=== PATIENT | female | born 1970 | race African-American/Black ===

== ENCOUNTER 2018-11-30 08:46 | Day surgery (SDC) | payer OTHER ==
[2018-11-30 09:29] LABS: HEMATOCRIT 34.2 % (36.0-47.0); HEMOGLOBIN 11.2 g/dL (12.0-15.5); MEAN CORPUSCULAR HEMOGLOBIN 27.4 pg (27.0-33.4); MEAN CORPUSCULAR HGB CONC 32.8 g/dL (32.0-36.0); MEAN CORPUSCULAR VOLUME 84 fl (80-97); PLATELET COUNT 324 10^3/uL (150-450); RED BLOOD COUNT 4.09 10^6/uL (3.72-5.28); WHITE BLOOD COUNT 9.9 10^3/uL (4.0-10.5)
[2018-11-30 09:48] LABS: APPEARANCE,URINE CLEAR; BILIRUBIN,URINE NEGATIVE (NEGATIVE); COLOR,URINE YELLOW; GLUCOSE, URINE NEGATIVE (NEGATIVE); KETONES,URINE NEGATIVE (NEGATIVE); LEUKOCYTE ESTERASE,URINE NEGATIVE (NEGATIVE); NITRITE,URINE NEGATIVE (NEGATIVE); PROTEIN,URINE 30 mg/dL (NEGATIVE); URINE SPECIFIC GRAVITY 1.013; UROBILINOGEN,URINE NEGATIVE mg/dL (<2.0)
[2018-11-30 09:49] LABS: ANION GAP 11 (5-19); BLOOD UREA NITROGEN 25 mg/dL (7-20); CALCIUM 10.1 mg/dL (8.4-10.2); CARBON DIOXIDE 27 mmol/L (22-30); CHLORIDE 103 mmol/L (98-107); GLUCOSE 97 mg/dL (75-110)
--- NOTE | 2018-11-30 09:59 | EKG REPORT ---
SEVERITY:- NORMAL ECG - SINUS RHYTHM : Confirmed by: Tomasa Nielson MD 30-Nov-2018 09:58:36
--- NOTE | 2018-11-30 10:10 | RADIOLOGY REPORT (SQ) ---
EXAM DESCRIPTION: CHEST SINGLE VIEW COMPLETED DATE/TIME: 11/30/2018 9:48 am REASON FOR STUDY: preop COMPARISON: None. NUMBER OF VIEWS: One view. TECHNIQUE: Single frontal radiographic view of the chest acquired. LIMITATIONS: None. FINDINGS: LUNGS AND PLEURA: No opacities, masses or pneumothorax. No pleural effusion. MEDIASTINUM AND HILAR STRUCTURES: No masses. Contour normal. HEART AND VASCULAR STRUCTURES: Heart normal in size. Normal vasculature. BONES: No acute findings. HARDWARE: None in the chest. OTHER: No other significant finding. IMPRESSION: NO SIGNIFICANT RADIOGRAPHIC FINDING IN THE CHEST. TECHNICAL DOCUMENTATION: JOB ID: [id number] [employer]- All Rights Reserved Reading location - IP/workstation name: [email or web address]
[2018-11-30] MEDS ORDERED: LIDOCAINE 0.5% INJ-PF (5 MG/ML) 50 ML SDV SUBCUT PRN (10:33)
[2018-11-30] MEDS ORDERED: RINGERS SOLUTION,LACTATED 1,000 ML IV PRN (10:33)
[2018-11-30] MEDS ORDERED: MIDAZOLAM 2 MG/2 ML INJ ONE (12:08)
[2018-11-30] MEDS ORDERED: PROPOFOL INJ 200 MG/20 ML VIAL IV ONE (12:08)
[2018-11-30] MEDS ORDERED: FENTANYL CITRATE INJ/PF 100 MCG/2 ML AMPUL ONE (12:08)
--- NOTE | 2018-11-30 12:31 | Discharge Summary ---
Discharge Summary (SDC) - Discharge Final Diagnosis: Right knee arthrofibrosis status post knee arthroplasty Date of Surgery: 11/30/18 Discharge Date: 11/30/18 Condition: Good Treatment or Instructions: Weightbearing as tolerated ambulation. Resume physical therapy as soon as practical. Prescriptions: Oxycodone HCl/Acetaminophen [Percocet 5-325 mg Tablet] 1 tab PO Q6 PRN #25 tab PRN Reason: Referrals: BRE PERSON DO [Primary Care Provider] - Discharge Diet: Regular Respiratory Treatments at Home: Deep Breathing/Coughing Discharge Activity: Balance Activity w/Rest, No tub bath Report the Following to Your Physician Immediately: Shortness of Breath, Fever over 101 Degrees
--- NOTE | 2018-11-30 12:32 | Operative Report ---
Operative Report DATE OF SURGERY: 11/30/18 PREOPERATIVE DIAGNOSIS: Arthrofibrosis right knee OPERATION: Closed manipulation right knee SURGEON: MAUREEN STEWART ANESTHESIA: Moderate Sedation PROCEDURE: With the patient supine Afrin table the right lower extremity is examined. Passive range of motion is 0 to approximately 75 degrees. These positions are photographed. The knee is then manipulated with flexion to 130 degrees. This is documented photographically as well. The patient's return to PACU in satisfactory condition.
[2018-11-30] MEDS ORDERED: ACETAMINOPHEN 1,000 MG/100 ML RTUPB IV ONE (13:08)
[2018-11-30] MEDS ORDERED: OXYCODONE-ACETAMINOPHEN 5-325 MG TABLET ONE (13:32)
[2018-11-30] MEDS ORDERED: OXYCODONE-ACETAMINOPHEN 5-325 MG TABLET PO PRN (13:33)
[2018-11-30 16:11] VITALS: BP 150/75
== END 2018-11-30 14:40 | disposition home or self-care (01) ==
LOC: OROUT 08:46
PROVIDERS: ATTEND Orthopaedic Surgery
DX: M24.661 Ankylosis, right knee (principal); Z96.651 Presence of right artificial knee joint; I10 Essential (primary) hypertension
CPT/HCPCS: 36415; 85027; 80048; 81001; 71045; 93005; 93010; 01380; 29999; J2250; J3010; J2704; J0131; 1380